=== PATIENT | male | born 1940 | race Caucasian/White ===

== ENCOUNTER 2017-09-30 12:14 | Inpatient (IN) | payer OTHER ==
[~2017-09-30] VITALS: Ht 182.9 cm; Wt 106.5 kg
[2017-09-30] MEDS ORDERED: SODIUM CHLORIDE 0.9% 1,000 ML IV ONE ×2 (12:23→14:45)
[2017-09-30] MEDS ORDERED: MORPHINE SULFATE 8mg/ml INJ SDV IV ONE ×2 (12:30→13:15)
[2017-09-30] MEDS ORDERED: ONDANSETRON HCL 4 MG/2 ML VIAL IV ONE (12:30)
[2017-09-30 12:46] LABS: Basophils # (auto) 0.2 uL; Basophils % (auto) 1.1 % (0.0-2.0); Eosinophils # (auto) 0.1 uL; Eosinophils % (auto) 0.5 % (0.0-7.0); Hematocrit 45.8 % (41.0-53.0); Hemoglobin 15.3 g/dL (13.5-17.5); Lymphocytes # (auto) 3.1 uL; Lymphocytes % (auto) 20.5 % (10.0-50.0); Mean Corpuscular Hemoglobin 31.2 pg (28.0-32.0); Mean Corpuscular Hgb Conc. 33.4 g/dL (32.0-36.0); Mean Corpuscular Volume 93.5 fL (80.0-100.0); Monocytes # (auto) 1.8 uL; Monocytes % (auto) 11.5 % (0.0-12.0); Neutrophils # (auto) 10.1 uL; Neutrophils % (auto) 66.4 % (37.0-80.0); Platelet Count (auto) 319 10^3/uL (140-450); Red Cell Distribution Width 13.9 % (11.8-14.3); White Blood Cell 15.2 10^3/uL (4.4-10.8)
[2017-09-30] MEDS ORDERED: IOHEXOL 350 MG/ML 100ML IJ ONE (12:57)
[2017-09-30] MEDS ORDERED: MORPHINE SULFATE INJECTION 1 ML ONE (12:58)
[2017-09-30 13:01] LABS: INR 0.95 (0.9-1.15); Partial Thromboplastin Time 20.7 sec (23.78-33.04); Prothrombin Time 10.2 sec (9.27-12.13)
[2017-09-30] MEDS ORDERED: EPTIFIBATIDE INJ (2MG/ML) 10ML VIAL IV ONE (13:04)
[2017-09-30] MEDS ORDERED: ANGIOMAX 250 MG VIAL IV ONE ×2 (13:04→14:08)
[2017-09-30] MEDS ORDERED: MIDAZOLAM HCL 1MG/1ML-2 ML VIAL ONE (13:04)
[2017-09-30] MEDS ORDERED: fentaNYL CITRATE 100 MCG/2 ML VL ONE (13:04)
[2017-09-30] MEDS ORDERED: LIDOCAINE 2%HCL (LOCAL ANESTH.) INJ 20ML MDV ONE (13:06)
[2017-09-30 13:10] LABS: Alanine Aminotransferase 49 U/L (16-61); Albumin 3.8 g/dL (3.4-5.0); Alkaline Phosphatase 72 U/L (45-117); Anion Gap 11 (5-15); Aspartate Aminotransferase 29 U/L (15-37); BUN/Creatinine Ratio 13.5; Bilirubin, Total 0.7 mg/dL (0.2-1.0); Blood Urea Nitrogen 14 mg/dL (7-18); Calcium 9.1 mg/dL (8.5-10.1); Carbon Dioxide 20 mmol/L (21-32); Chloride 111 mmol/L (98-107); GFR African American 90 mL/min; GFR Non-African American 74 mL/min; Glucose 117 mg/dL (74-106); Magnesium 2.6 mg/dL (1.6-2.6); Potassium 4.3 mmol/L (3.5-5.1); Sodium 142 mmol/L (136-145); Total Protein 7.1 g/dL (6.4-8.2)
[2017-09-30] MEDS ORDERED: SODIUM CHL 0.9% 50 ML ONE (14:08)
[2017-09-30] MEDS ORDERED: IODIXANOL 320MG/ML 100ML BTL IV ONE (14:18)
[2017-09-30] MEDS ORDERED: TICAGRELOR 90 MG TAB ONE ×2 (14:22→21:54)
[2017-09-30] MEDS ORDERED: SODIUM CHLORIDE 0.9% 1,000 ML IV SCH (14:44)
[2017-09-30] MEDS ORDERED: ACETAMINOPHEN 500 MG TAB PO PRN (14:45)
[2017-09-30] MEDS ORDERED: BUDESONIDE (INHALATION) 0.5 MG/2 ML NEB NEB ONE (14:45)
[2017-09-30] MEDS ORDERED: ONDANSETRON HCL 4 MG/2 ML VIAL IV PRN ×2 (14:45→15:30)
[2017-09-30] MEDS ORDERED: NITROGLYCERIN 0.4 MG SL TAB SL PRN (14:45)
[2017-09-30] MEDS ORDERED: MORPHINE SULFATE 8mg/ml INJ SDV IV PRN ×3 (14:45→15:30)
[2017-09-30] MEDS ORDERED: ASPirin 81 mg TAB PO ONE (14:45)
[2017-09-30] MEDS ORDERED: LORazepam 0.5 MG TAB PO PRN (14:45)
[2017-09-30] MEDS ORDERED: METOPROLOL TARTRATE 25 MG TAB PO ONE (14:45)
[2017-09-30 15:27] VITALS: BP 123/70
[2017-09-30] MEDS ORDERED: traMADol HCL 50 MG TAB PO PRN (15:30)
[2017-09-30] MEDS ORDERED: PRE5T PO (17:33)
[2017-09-30] MEDS ORDERED: ALBU0.084 IN (17:33)
[2017-09-30] MEDS ORDERED: LEUP45IN2 IM (17:33)
[2017-09-30] MEDS ORDERED: ASPI81CH59 PO (17:33)
[2017-09-30] MEDS ORDERED: PRAV20TA3 PO (17:33)
[2017-09-30] MEDS ORDERED: TRAM50TA2 PO (17:33)
[2017-09-30] MEDS ORDERED: FLUT1SPR5 (17:33)
[2017-09-30] MEDS ORDERED: CLOP75TA28 PO (17:33)
[2017-09-30] MEDS ORDERED: TIOTCAP IN (17:33)
[2017-09-30] MEDS ORDERED: PANT1INJ3 PO (17:33)
[2017-09-30] MEDS ORDERED: [UNRECOGNIZED DRUG - CODE] PO (17:33)
[2017-09-30 17:59] VITALS: BP 113/76
[2017-09-30 20:00] VITALS: BP 131/61
[2017-09-30] MEDS: BUDESONIDE (INHALATION) 0.5 MG/2 ML NEB NEB SCH (20:52)
[2017-09-30] MEDS: IPRATROPIUM BROM 0.5 MG/2.5ML INH SOL NEB SCH (20:52)
[2017-09-30] MEDS: ALBUTEROL SULF 2.5 MG/0.5ML(0.5%) NEB SOLN NEB SCH (20:53)
[2017-09-30] MEDS: ATORVASTATIN 20 MG TAB PO SCH (21:46)
[2017-09-30] MEDS: predniSONE 5 MG TAB PO SCH (21:46)
[2017-09-30 22:00] VITALS: BP 131/61
[2017-09-30] MEDS ORDERED: ATORVASTATIN 20 MG TAB PO ONE (22:00)
[2017-09-30] MEDS ORDERED: predniSONE 5 MG TAB PO ONE (22:00)
[2017-09-30] MEDS ORDERED: TICAGRELOR 90 MG TAB PO SCH (22:00)
[2017-09-30] MEDS ORDERED: ALBUTEROL SULF 2.5 MG/0.5ML(0.5%) NEB SOLN NEB ONE (22:00)
[2017-09-30] MEDS ORDERED: IPRATROPIUM BROM 0.5 MG/2.5ML INH SOL NEB ONE (22:00)
[2017-09-30] MEDS: TICAGRELOR 90 MG TAB PO SCH (22:19)
[2017-10-01 05:00] VITALS: BP 99/67
[2017-10-01] MEDS: ALBUTEROL SULF 2.5 MG/0.5ML(0.5%) NEB SOLN NEB SCH ×3 (06:34→22:00)
[2017-10-01] MEDS: IPRATROPIUM BROM 0.5 MG/2.5ML INH SOL NEB SCH ×2 (06:34→14:00)
[2017-10-01] MEDS: BUDESONIDE (INHALATION) 0.5 MG/2 ML NEB NEB SCH ×2 (06:35→22:00)
[2017-10-01 06:40] LABS: INR 0.95 (0.9-1.15); Partial Thromboplastin Time 23.5 sec (23.78-33.04); Prothrombin Time 10.2 sec (9.27-12.13)
[2017-10-01 06:43] LABS: Albumin 3.5 g/dL (3.4-5.0); Potassium 4.8 mmol/L (3.5-5.1)
[2017-10-01 06:49] LABS: Cholesterol 165 mg/dL (< 200); HDL Cholesterol 79 mg/dL (40-59); LDL Cholesterol 74 mg/dL (< 100); Triglycerides 95 mg/dL (< 150)
[2017-10-01 06:50] LABS: Bilirubin, Total 0.9 mg/dL (0.2-1.0); Total Protein 6.7 g/dL (6.4-8.2)
[2017-10-01 08:50] LABS: BUN/Creatinine Ratio 12.7
[2017-10-01 09:24] VITALS: BP 102/45
[2017-10-01] MEDS: PANTOPRAZOLE 40 MG TAB PO SCH (10:00)
[2017-10-01] MEDS: ASPirin-EC 81 mg tab PO SCH (10:00)
[2017-10-01] MEDS: predniSONE 5 MG TAB PO SCH ×2 (10:00→21:36)
[2017-10-01] MEDS ORDERED: LIDOCAINE 2%HCL (LOCAL ANESTH.) INJ 20ML MDV ONE ×2 (10:32→13:44)
[2017-10-01] MEDS ORDERED: IOHEXOL 350 MG/ML 100ML IJ ONE (10:32)
[2017-10-01] MEDS: TICAGRELOR 90 MG TAB PO SCH ×3 (11:20→21:36)
[2017-10-01] MEDS ORDERED: fentaNYL CITRATE 100 MCG/2 ML VL ONE (12:49)
[2017-10-01] MEDS ORDERED: MIDAZOLAM HCL 1MG/1ML-2 ML VIAL ONE (12:49)
[2017-10-01 13:00] VITALS: BP 114/82
[2017-10-01] MEDS ORDERED: ANGIOMAX 250 MG VIAL IV ONE ×2 (15:17→15:51)
[2017-10-01] MEDS ORDERED: SODIUM CHL 0.9% 50 ML ONE ×3 (15:17→15:51)
[2017-10-01] MEDS ORDERED: IODIXANOL 320MG/ML 100ML BTL IV ONE (15:45)
[2017-10-01 17:44] VITALS: BP 103/59
[2017-10-01] MEDS: SOD CHL 0.45% 1,000 ML IV SCH (19:41)
[2017-10-01] MEDS: ATORVASTATIN 20 MG TAB PO SCH (21:36)
[2017-10-01 22:00] VITALS: BP 111/62
[2017-10-02 05:27] VITALS: BP 112/70
[2017-10-02] MEDS: ALBUTEROL SULF 2.5 MG/0.5ML(0.5%) NEB SOLN NEB SCH (05:47)
[2017-10-02] MEDS: BUDESONIDE (INHALATION) 0.5 MG/2 ML NEB NEB SCH (05:48)
[2017-10-02 06:18] LABS: Basophils # (auto) 0.1 uL; Basophils % (auto) 0.4 % (0.0-2.0); Eosinophils # (auto) 0 uL; Eosinophils % (auto) 0.2 % (0.0-7.0); Hematocrit 42.7 % (41.0-53.0); Hemoglobin 14.3 g/dL (13.5-17.5); Lymphocytes # (auto) 0.9 uL; Lymphocytes % (auto) 7.7 % (10.0-50.0); Mean Corpuscular Hemoglobin 31.6 pg (28.0-32.0); Mean Corpuscular Hgb Conc. 33.4 g/dL (32.0-36.0); Mean Corpuscular Volume 94.5 fL (80.0-100.0); Monocytes # (auto) 1.3 uL; Monocytes % (auto) 10.6 % (0.0-12.0); Neutrophils # (auto) 9.9 uL; Neutrophils % (auto) 81.1 % (37.0-80.0); Nucleated Red Blood Cells % 0.1 %; Platelet Count (auto) 221 10^3/uL (140-450); Red Blood Cells 4.52 10^6/uL (4.5-5.90); White Blood Cell 12.2 10^3/uL (4.4-10.8)
[2017-10-02 06:37] LABS: BUN/Creatinine Ratio 13.6; Potassium 4.1 mmol/L (3.5-5.1)
[2017-10-02 06:38] LABS: Albumin 3.3 g/dL (3.4-5.0); Bilirubin, Total 0.7 mg/dL (0.2-1.0); Calcium 8.8 mg/dL (8.5-10.1); Total Protein 6.1 g/dL (6.4-8.2)
[2017-10-02] MEDS: SOD CHL 0.45% 1,000 ML IV SCH (07:03)
[2017-10-02 08:00] VITALS: BP 96/54
[2017-10-02] MEDS: TICAGRELOR 90 MG TAB PO SCH (10:06)
[2017-10-02] MEDS: PANTOPRAZOLE 40 MG TAB PO SCH (10:06)
[2017-10-02] MEDS: predniSONE 5 MG TAB PO SCH (10:06)
[2017-10-02] MEDS: ASPirin-EC 81 mg tab PO SCH (10:07)
[2017-10-02 10:49] VITALS: BP_DIAS 54
[2017-10-02 11:30] VITALS: BP 96/54
[2017-10-02 12:12] VITALS: BP 133/67
== END 2017-10-02 12:25 | disposition home or self-care (01) | DRG 246 ==
LOC: EDBD 12:14 → ER 12:14 → CATH 12:15 → TELE-EAST 12:16
PROVIDERS: ADMIT Internal Medicine; ATTEND Family Medicine
PROC: 027034Z Dilation of Coronary Artery, One Artery with Drug-eluting Intraluminal Device, Percutaneous Approach (ICD-10-PCS; principal; 2017-09-30)
PROC: B41F1ZZ Fluoroscopy of Right Lower Extremity Arteries using Low Osmolar Contrast (ICD-10-PCS; 2017-09-30)
PROC: 02703ZZ Dilation of Coronary Artery, One Artery, Percutaneous Approach (ICD-10-PCS; 2017-09-30)
PROC: B41F1ZZ Fluoroscopy of Right Lower Extremity Arteries using Low Osmolar Contrast (ICD-10-PCS; 2017-10-01)
PROC: B2111ZZ Fluoroscopy of Multiple Coronary Arteries using Low Osmolar Contrast (ICD-10-PCS; 2017-10-01)
DX: I21.3 ST elevation (STEMI) myocardial infarction of unspecified site (principal); I46.9 Cardiac arrest, cause unspecified; J44.9 Chronic obstructive pulmonary disease, unspecified; D72.829 Elevated white blood cell count, unspecified; E78.00 Pure hypercholesterolemia, unspecified; I70.0 Atherosclerosis of aorta; I25.110 Atherosclerotic heart disease of native coronary artery with unstable angina pectoris; Z85.46 Personal history of malignant neoplasm of prostate; Z90.79 Acquired absence of other genital organ(s); Z95.5 Presence of coronary angioplasty implant and graft
CPT/HCPCS: 36415; 71045; 71260; 74177; 80053; 80061; 83735; 83880; 84484; 85025; 85379; 85610; 85730; 92920; 93005; 93306; 94640; 99152; C1874; C1887; C9600; J2250; J2270; J2405; Q9967

== ENCOUNTER 2021-02-01 11:49 | Emergency (ER) | payer OTHER ==
[~2021-02-01] VITALS: Ht 180.3 cm; Wt 45.4 kg
[~2021-02-01 11:49] MED LIST: ALBUAER3 IN; ASPI81CH59 PO; ATOR80TA PO; B-CO-15 PO; CYA100I PO; DOCU-94 PO; FAMO20IN2 PO; FLUT1SPR5; FLUT500M2 INH; IPRAAER6 IN; LEUP45IN2 IM; MAGNTAB16 OR; NITR0.4S29 SL; PANT1INJ3 PO; PERCOT PO; POLY33504 PO; PRE5T PO; PSYL48.56 PO; TIOTCAP IN; [UNRECOGNIZED DRUG - CODE] PO
[2021-02-01] MEDS ORDERED: SODIUM CHLORIDE 0.9% 1,000 ML IV ONE (12:15)
[2021-02-01 12:57] LABS: Basophils # (auto) 0.1 10 ^3/uL (0-0.2); Basophils % (auto) 0.9 % (0.0-2.0); Eosinophils # (auto) 0 10 ^3/uL (0-0.8); Eosinophils % (auto) 0.3 % (0.0-7.0); Hematocrit 41.1 % (41.0-53.0); Hemoglobin 13.5 g/dL (13.5-17.5); Lymphocytes # (auto) 1.6 10 ^3/uL (0.4-5.4); Lymphocytes % (auto) 11.3 % (10.0-50.0); Mean Corpuscular Hemoglobin 29.7 pg (28.0-32.0); Mean Corpuscular Hgb Conc. 32.7 g/dL (32.0-36.0); Mean Corpuscular Volume 90.6 fL (80.0-100.0); Monocytes # (auto) 1.8 10 ^3/uL (0-1.3); Monocytes % (auto) 13.1 % (0.0-12.0); Neutrophils # (auto) 10.2 10 ^3/uL (1.6-8.6); Neutrophils % (auto) 74.4 % (37.0-80.0); Nucleated Red Blood Cells % 0.1 %; Red Blood Cells 4.53 10^6/uL (4.5-5.90); Red Cell Distribution Width 15.7 % (11.8-14.3); White Blood Cell 13.7 10^3/uL (4.4-10.8)
[2021-02-01 13:19] LABS: Albumin 2.7 g/dL (3.4-5.0); Anion Gap 6 (5-15); Blood Urea Nitrogen 18 mg/dL (7-18); Calcium 8.5 mg/dL (8.5-10.1); Carbon Dioxide 25 mmol/L (21-32); Chloride 108 mmol/L (98-107); Glucose 79 mg/dL (74-106); Potassium 3.7 mmol/L (3.5-5.1); Sodium 139 mmol/L (136-145)
[2021-02-01 13:24] LABS: Alanine Aminotransferase 40 U/L (16-61); Alkaline Phosphatase 59 U/L (45-117); Aspartate Aminotransferase 40 U/L (15-37); BUN/Creatinine Ratio 13.4; Bilirubin, Total 0.8 mg/dL (0.2-1.0); GFR African American 66 mL/min; GFR Non-African American 55 mL/min; Total Protein 6.1 g/dL (6.4-8.2)
[2021-02-01 17:08] VITALS: BP 117/65
== END 2021-02-01 17:19 | disposition home or self-care (01) ==
LOC: EDBD 11:49 → ER 11:49
DX: I95.9 Hypotension, unspecified (principal); D64.9 Anemia, unspecified; I11.0 Hypertensive heart disease with heart failure; I50.9 Heart failure, unspecified; I25.10 Atherosclerotic heart disease of native coronary artery without angina pectoris; I25.2 Old myocardial infarction; J44.9 Chronic obstructive pulmonary disease, unspecified; E78.5 Hyperlipidemia, unspecified; Z90.89 Acquired absence of other organs; Z79.82 Long term (current) use of aspirin; Z79.899 Other long term (current) drug therapy; Z88.5 Allergy status to narcotic agent; Z88.8 Allergy status to other drugs, medicaments and biological substances
CPT/HCPCS: 36415; 70450; 71045; 80053; 83605; 83615; 84484; 85025; 87040; 93005; 96360; 96361; 99285; J7030